=== PATIENT | male | born 1965 | race Caucasian/White ===

== ENCOUNTER 2018-06-19 06:01 | Emergency (ER) | payer OTHER ==
[2018-06-19] MEDS ORDERED: TETRACAINE HCL 0.5% 2ML OPTH ONE (06:50)
[2018-06-19] MEDS ORDERED: FLUORESCEIN SODIUM 0.6 MG/WRAP ONE (06:50)
--- NOTE | 2018-06-19 07:13 | EDPHYS ---
Physician Documentation [facility] Name: David Fregoso Age: 52 yrs Sex: Male : 1965 Arrival Date: 06/19/2018 Time: 06:07 Bed 20 Private MD: Vincenzo Monge B ED Physician Dallas Pelaez HPI: 06/19 06:27 This 52 yrs old Male presents to ER via Unassigned with complaints of Eye jmm Injury. 06:27 The patient sustained. Onset: The symptoms/episode began/occurred acutely, at 04:00. jmm Duration: the symptoms are continuous. Aggravated by nothing. Alleviated by nothing. Associated signs and symptoms:. This is a 52 year old male that presents to the ED with pain to the right eye after accidently scratching his right eye against the edge of a gel pack. . Historical: - Allergies: 06:20 seasonal allergies; jb4 06:20 No Known Drug Allergies; jb4 - Home Meds: 06:20 testosterone buccal buccal [Active]; jb4 - PMHx: 06:20 Umbilical hernia; jb4 - PSHx: 06:20 Hernia repair; lymphoma removal; throat; jb4 - Immunization history:: Adult Immunizations unknown, Flu vaccine is not up to date. - Social history:: Smoking status: Patient/guardian denies using tobacco, Patient uses alcohol, but reports only rare drinking. - Ebola Screening: : No symptoms or risks identified at this time. ROS: 06:27 Constitutional: Negative for fever, chills, and weight loss. jmm 06:27 Cardiovascular: Negative for chest pain, palpitations, and edema, Respiratory: Negative for shortness of breath, cough, wheezing, and pleuritic chest pain. 06:27 Eyes: Positive for pain. 06:27 All other systems are negative. Exam: 06:27 Constitutional: This is a well developed, well nourished patient who is awake, alert, jmm and in no acute distress. Head/Face: atraumatic. Eyes: EOMI, no conjunctival erythema appreciated ENT: Moist Mucus Membranes Neck: Trachea midline, Supple Chest/axilla: Normal chest wall appearance and motion. Cardiovascular: Regular rate and rhythm. No edema appreciated Respiratory: Normal respirations, no respiratory distress appreciated Abdomen/GI: Non distended, soft Back: Normal ROM Skin: General appearance color normal MS/ Extremity: Moves all extremities, no obvious deformities appreciated, no edema noted to the lower extremities Neuro: Awake and alert, normal gait Psych: Behavior is normal, Mood is normal, Patient is cooperative and pleasant 07:10 Visual Acuity: I have reviewed the nursing documentation. [facility] [place] 07:10 Eyes: Corneas: abrasion, that is moderate sized, on the right, a fluorescein strip employed to appreciate the findings. Vital Signs: 06:20 BP 139 / 77; Pulse 82; Resp 16; Temp 98.6(O); Pulse Ox 99% on R/A; Weight 124.74 kg jb4 (R); Height 5 ft. 10 in. (177.80 cm) (R); Pain 7/10; 06:20 Body Mass Index 39.46 (124.74 kg, 177.80 cm) jb4 Visual Acuity: 06:45 Left Eye Visual acuity 20/15, Pupil size 3 mm, Normal, React To Light, Reactive To jb4 Accomodation; Right Eye Visual acuity 20/20, Pupil size 3 mm, Normal, React To Light, Reactive To Accomodation; Both Eyes Visual acuity 20/15; Without Lenses; MDM: 06:25 Patient medically screened. [facility] [place] 07:10 Data reviewed: vital signs, nurses notes. Counseling: I had a detailed discussion with sukhdeep the patient and/or guardian regarding: the historical points, exam findings, and any diagnostic results supporting the discharge/admit diagnosis, the need for outpatient follow up, to return to the emergency department if symptoms worsen or persist or if there are any questions or concerns that arise at home. ED course: PE revealed an abrasion close to the pupil. Due to this, I advised the patient to follow up with opthalmology and patient was given strict return precautions. Patient understood and agrees with the plan of care. . 06/19 06:29 Order name: Visual Acuity; Complete Time: 06:46 [facility] [place] 06/19 06:29 Order name: Eye Tray; Complete Time: 06:47 [facility] [place] 06/19 06:29 Order name: Fluoresene Opth strip; Complete Time: 06:47 [facility] [place] Administered Medications: 06:40 Drug: Tetracaine Drops 0.5 % 1 drops {Note: Administered by ER provider.} Route: jb4 Ophthalmic; Site: right eye; Disposition: 06/19/18 07:12 Discharged to Home. Impression: Injury of conjunctiva and corneal abrasion without foreign body, right eye. - Condition is Stable. - Discharge Instructions: Corneal Abrasion. - Prescriptions for Erythromycin 5 mg/gram (0.5 %) Ophthalmic Ointment - apply 1 ribbon by OPHTHALMIC route every 8 hours; 1 tube. - Medication Reconciliation Form, Thank You Letter, Antibiotic Education, Prescription Opioid Use form. - Follow up: Blaze Murdock MD; When: 1 - 2 days; Reason: Recheck today's complaints, Continuance of care, Re-evaluation by your physician. Addendum: 06/25/2018 07:22 Co-signature as Attending Physician, Dallas Pelaez MD. g s Signatures: Elinor Avila, RN RN Donny Cardoza PA PA jmm Bryson, James RN RN jb4 Latanya, MD LUNA Haynes gs Corrections: (The following items were deleted from the chart) 06/19 07:22 07:12 06/19/2018 07:12 Discharged to Home. Impression: Injury of conjunctiva and sv corneal abrasion without foreign body, right eye. Condition is Stable. Forms are Medication Reconciliation Form, Thank You Letter, Antibiotic Education, Prescription Opioid Use. Follow up: Blaze Murdock; When: 1 - 2 days; Reason: Recheck today's complaints, Continuance of care, Re-evaluation by your physician. sukhdeep
--- NOTE | 2018-06-19 07:13 | ER ---
Nurse's Notes [facility] Name: David Fregoso Age: 52 yrs Sex: Male : 1965 Arrival Date: 06/19/2018 Time: 06:07 Bed 20 Private MD: Vincenzo Monge B Diagnosis: Injury of conjunctiva and corneal abrasion without foreign body, right eye Presentation: 06/19 06:20 Presenting complaint: Patient states: I has an ice pack maritza wrapped to my shoulder and jb4 when I was taking it off this morning, I pulled on it an a corner hit me in the eye. 06:20 Transition of care: patient was not received from another setting of care. Mechanism of jb4 Injury: Hit in eye with maritza wrap. The patient reports a positive loss of vision. The patient's loss of vision began 2 hours ago. Onset of symptoms was June 19, 2018. Risk Assessment: Do you want to hurt yourself or someone else? Patient reports no desire to harm self or others. Initial Sepsis Screen: Does the patient meet any 2 criteria? No. Patient's initial sepsis screen is negative. Does the patient have a suspected source of infection? No. Patient's initial sepsis screen is negative. Care prior to arrival: None. 06:20 Method Of Arrival: Ambulatory jb4 06:20 Acuity: MELLISA 4 jb4 Triage Assessment: 06:20 General: Appears in no apparent distress. uncomfortable, Behavior is calm, cooperative, jb4 appropriate for age. Pain: Complains of pain in right eye Pain does not radiate. Pain currently is 7 out of 10 on a pain scale. EENT: Sclera/Cornea are clear in outer aspect of conjuctiva of right eye, iris of right eye, inner aspect of conjuctiva of right eye, outer aspect of conjuctiva of left eye, iris of left eye and inner aspect of conjunctiva of left eye are reddened in outer aspect of conjuctiva of right eye, iris of right eye and inner aspect of conjuctiva of right eye. Neuro: Level of Consciousness is awake, alert, obeys commands, Oriented to person, place, time, situation, Pupils are PERRLA. Cardiovascular: Patient's skin is warm and dry. Respiratory: Airway is patent Respiratory effort is even, unlabored, Respiratory pattern is regular, symmetrical. GI: No signs and/or symptoms were reported involving the gastrointestinal system. : No signs and/or symptoms were reported regarding the genitourinary system. Derm: Skin is intact, Skin is pink, warm \T\ dry. Musculoskeletal: Circulation, motion, and sensation intact. Historical: - Allergies: 06:20 seasonal allergies; jb4 06:20 No Known Drug Allergies; jb4 - Home Meds: 06:20 testosterone buccal buccal [Active]; jb4 - PMHx: 06:20 Umbilical hernia; jb4 - PSHx: 06:20 Hernia repair; lymphoma removal; throat; jb4 - Immunization history:: Adult Immunizations unknown, Flu vaccine is not up to date. - Social history:: Smoking status: Patient/guardian denies using tobacco, Patient uses alcohol, but reports only rare drinking. - Ebola Screening: : No symptoms or risks identified at this time. Screenin:20 Abuse screen: Denies threats or abuse. Nutritional screening: No deficits noted. jb4 Tuberculosis screening: No symptoms or risk factors identified. Fall Risk None identified. Assessment: 06:20 General: see triage assessment.. jb4 Vital Signs: 06:20 BP 139 / 77; Pulse 82; Resp 16; Temp 98.6(O); Pulse Ox 99% on R/A; Weight 124.74 kg jb4 (R); Height 5 ft. 10 in. (177.80 cm) (R); Pain 7/10; 06:20 Body Mass Index 39.46 (124.74 kg, 177.80 cm) jb4 Visual Acuity: 06:45 Left Eye Visual acuity 20/15, Pupil size 3 mm, Normal, React To Light, Reactive To jb4 Accomodation; Right Eye Visual acuity 20/20, Pupil size 3 mm, Normal, React To Light, Reactive To Accomodation; Both Eyes Visual acuity 20/15; Without Lenses; ED Course: 06:07 Patient arrived in ED. es 06:07 Vincenzo Monge MD is Private Physician. es 06:20 Arm band placed on left wrist. jb4 06:20 Patient has correct armband on for positive identification. Bed in low position. Call jb4 light in reach. Side rails up X 1. Pulse ox on. NIBP on. 06:21 Donny Sanchez PA is PHCP. jmm 06:21 Dallas Pelaez MD is Attending Physician. liset 06:28 Trevor Vazquez, RN is Primary Nurse. jb4 06:31 Triage completed. jb4 07:09 Assist provider with eye exam of right eye. using fluorescein stain, Performed by Donny GALINDO. 07:11 Blaze Murdock MD is Referral Physician. [facility] Administered Medications: 06:40 Drug: Tetracaine Drops 0.5 % 1 drops {Note: Administered by ER provider.} Route: jb4 Ophthalmic; Site: right eye; Outcome: 07:12 Discharge ordered by . sukhdeep 07:22 Patient left the ED. sv Signatures: Elinor Avila, RN RN Donny Cardoza PA PA [facility] Gregoria Heath James, RN RN jb4
== END 2018-06-19 07:22 | disposition home or self-care (01) ==
LOC: ER 06:01
DX: S05.01XA Injury of conjunctiva and corneal abrasion without foreign body, right eye, initial encounter (principal); W45.8XXA Other foreign body or object entering through skin, initial encounter
CPT/HCPCS: 99283